=== PATIENT | female | born 2005 | race Caucasian/White ===

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

== ENCOUNTER → 2025-01-09 | Outpatient (REF) | payer MEDICAID, MEDICARE, OTHER ==
[~2025-01-09] MED LIST changes: +CEFD1CAP9; +COLA100C5 PO; +IBUP-1022 PO; +LORA-1041 PO; +MULTTAB20 PO; +NORE1PAT TOP; -OLAN15TA13 PO; +OLAN15TA69 PO; +OXYC1TAB23 PO
[2025-01-09 16:50] LABS: Trichomonas vaginalis (AMP) NOT DETECTED (NEGATIVE)
[2025-01-09 17:14] LABS: GC DNA AMPLIFICATION NEGATIVE (NEGATIVE)
== END ==
LOC: M SFHCWAGY 15:11
PROVIDERS: ATTEND Nurse Practitioner Family
DX: N94.10 Unspecified dyspareunia (principal); R10.2 Pelvic and perineal pain

== ENCOUNTER → 2025-01-16 | Outpatient (CLI) | payer MEDICAID, OTHER | LOC: M WHC 09:57 | PROVIDERS: ATTEND Nurse Practitioner Family | DX: N94.10 Unspecified dyspareunia (principal); R10.2 Pelvic and perineal pain ==

== ENCOUNTER 2025-05-01 13:58 | Outpatient (RCR) | payer OTHER ==
[~2025-05-01 13:58] MED LIST changes: -FLUO10TA30 PO; +FLUO1TAB2 PO
== END 2025-05-09 ==
LOC: M PT 13:58
PROVIDERS: ATTEND Nurse Practitioner Family
DX: N94.10 Unspecified dyspareunia (principal)

== ENCOUNTER 2025-05-26 15:52 | Emergency (ER) | payer OTHER ==
[~2025-05-26] VITALS: Ht 165.1 cm; Wt 84.9 kg
[2025-05-26 21:06] VITALS: BP 119/64; TEMP 98.2; O2SAT 97
== END 2025-05-26 21:07 | disposition home or self-care (01) ==
LOC: M ED 15:52
DX: S80.11XA Contusion of right lower leg, initial encounter (principal); W01.198A Fall on same level from slipping, tripping and stumbling with subsequent striking against other object, initial encounter; Y92.830 Public park as the place of occurrence of the external cause; Y93.89 Activity, other specified; Y99.9 Unspecified external cause status; Z88.0 Allergy status to penicillin; Z91.048 Other nonmedicinal substance allergy status; Z79.52 Long term (current) use of systemic steroids; Z79.899 Other long term (current) drug therapy

== ENCOUNTER 2025-05-30 12:45 | Outpatient (RCR) | payer OTHER ==
[~2025-05-30 12:45] MED LIST changes: -IBUP-1022 PO; +IBUP600T42 PO
== END 2025-06-09 ==
LOC: M PT 12:45
PROVIDERS: ATTEND Nurse Practitioner Family
DX: N94.10 Unspecified dyspareunia (principal)